=== PATIENT | male | born 1980 | race American Indian/Alaskan Native ===

== ENCOUNTER 2016-10-02 15:35 | Emergency (ER) | payer MEDICAID, OTHER ==
[2016-10-02 15:36] VITALS: BMI 24.7
[2016-10-02 16:01] VITALS: BP 119/71; PULSE 83; RESP 20; TEMP 98.5; O2SAT 96
--- NOTE | 2016-10-02 18:02 | C.PDOC ---
History Of Present Illness 36 y/o male presents to the ED requesting alcohol detox. Pt arrives stating he is prescreened, drinks "a lot of beer and liquor" and wants to get better for his family. No physical complaints at this time. Time Seen by Provider: 10/02/16 17:36 Chief Complaint (Nursing): Substance Abuse History Per: Patient History/Exam Limitations: no limitations Suicide/Self Injury Attempted (Context): None Modifying Factor(s): Alcohol Severity: Mild Involuntary Hold By: None Recent travel outside of the [place]: No Past Medical History Reviewed: Historical Data, Nursing Documentation, Vital Signs Vital Signs: Last Vital Signs Temp 98.5 F 10/02/16 15:59 Pulse 83 10/02/16 15:59 Resp 20 10/02/16 15:59 BP 119/71 10/02/16 15:59 Pulse Ox 96 10/02/16 18:02 - Medical History PMH: Anxiety - [facility] DETOXIFICATION SERVICES FOR SUBSTANCE ABUSE TREATMENT (03/17/16) GROUP PSYCHOTHERAPY (09/08/15) Family History: States: Unknown Family Hx - Social History Hx Tobacco Use: Yes Hx Alcohol Use: Yes Hx Substance Use: No - Immunization History Hx Tetanus Toxoid Vaccination: No Hx Influenza Vaccination: No Hx Pneumococcal Vaccination: No Review Of Systems Except As Marked, All Systems Reviewed And Found Negative. Constitutional: Negative for: Fever Cardiovascular: Negative for: Chest Pain Respiratory: Negative for: Shortness of Breath Gastrointestinal: Negative for: Vomiting Psych: Negative for: Suicidal ideation Physical Exam - Physical Exam Appears: Non-toxic, No Acute Distress Skin: Warm, Dry, No Rash Head: Atraumatic, Normacephalic Neck: Normal, Normal ROM, Supple Chest: Symmetrical Cardiovascular: Rhythm Regular, No Murmur Respiratory: Normal Breath Sounds, No Rales, No Rhonchi, No Wheezing Gastrointestinal/Abdominal: Normal Exam, Soft, No Tenderness Extremity: Bilateral: Atraumatic Neurological/Psych: Oriented x3, Normal Speech ED Course And Treatment O2 Sat by Pulse Oximetry: 96 (room air) Pulse Ox Interpretation: Normal Medical Decision Making Medical Decision Making: Spoke to CRISIS, patient not prescreened. Will order labs, medical clearance. Pending bed availability. No available beds. Patient informed to try the next day. Disposition Counseled Patient/Family Regarding: Diagnosis, Need For Followup - Disposition Referrals: [facility] [Outside] Disposition: HOME/ ROUTINE Disposition Time: 18:44 Condition: GUARDED Additional Instructions: Call the detox unit and request a bed. [phone] Forms: General Discharge Instructions - POA Present On Arrival: None - Clinical Impression Clinical Impression: Alcohol abuse - Scribe Statement The provider has reviewed the documentation as recorded by the Abhi Timmons Provider Attestation: All medical record entries made by the Abhi were at my direction and personally dictated by me. I have reviewed the chart and agree that the record accurately reflects my personal performance of the history, physical exam, medical decision making, and the department course for this patient. I have also personally directed, reviewed, and agree with the discharge instructions and disposition.
[2016-10-02 18:46] LABS: BASO # 0.1 K/uL (0.0-0.2); BASO % 1.4 % (0.0-2.0); EOS % 1.1 % (0.0-4.0); LYMPH % 49.8 % (20.0-40.0); MEAN CELL VOLUME 100.1 fL (80.0-94.0); MEAN CORPUSCULAR HEMOGLOBIN 33.1 pg (27.0-31.0); MONO # 0.5 K/uL (0.0-0.8); MONO % 12.8 % (0.0-10.0); NRBC % 0.1 % (0.0-2.0); RED CELL DISTRIBUTION WIDTH 14.8 % (11.5-14.5)
[2016-10-02 19:07] LABS: CHLORIDE 107 mmol/L (98-107)
[2016-10-02 19:08] LABS: POTASSIUM 3.7 mmol/L (3.6-5.2); SODIUM 145 mmol/L (132-148)
[2016-10-02 19:10] LABS: ALB/GLOB RATIO 1.3 (1.0-2.1); ALKALINE PHOSPHATASE 101 U/L (38-126); ALT/SGPT 88 U/L (21-72); AST/SGOT 154 U/L (17-59); BILIRUBIN,TOTAL 0.5 mg/dL (0.2-1.3); BLOOD UREA NITROGEN 3 mg/dL (9-20); CARBON DIOXIDE 26 mmol/L (22-30); GFR AFRICAN-AMERICAN > 60; GLUCOSE,RANDOM 118 mg/dL (75-110); TOTAL PROTEIN 7.3 g/dL (6.3-8.3)
[2016-10-02 19:11] LABS: CALCIUM 8.6 mg/dl (8.6-10.4)
[2016-10-02 19:40] LABS: ALCOHOL SERUM 406 mg/dl (0-10)
== END 2016-10-02 18:49 | disposition home or self-care (01) ==
LOC: C.ER 15:35
DX: F10.10 Alcohol abuse, uncomplicated (principal); Y90.8 Blood alcohol level of 240 mg/100 ml or more

== ENCOUNTER 2016-10-10 18:18 | Emergency (ER) | payer MEDICAID, OTHER ==
[2016-10-10 18:19] VITALS: BMI 23.6
[2016-10-10 18:22] VITALS: BP 149/102; PULSE 86; RESP 18; TEMP 97.9; O2SAT 97
--- NOTE | 2016-10-10 19:19 | C.PDOC ---
History Of Present Illness Patient is a 36 year old male who was brought to the ER after his brother called EMS so he may get detox from ETOH. Patient is currently intoxicated and admits to drinking today; he is able to speak but as slurred speech and his able to talk steady. Last time patient was here he left AMA; denies any physical complaints at this time. Time Seen by Provider: 10/10/16 19:07 Chief Complaint (Nursing): Substance Abuse History Per: Patient History/Exam Limitations: no limitations Onset/Duration Of Symptoms: Hrs Current Symptoms Are (Timing): Still Present Suicide/Self Injury Attempted (Context): None Modifying Factor(s): Alcohol Associated Symptoms: denies: Depression, Suicidal Thoughts, Suicidal Plan Recent travel outside of the [place]: No Past Medical History Reviewed: Historical Data, Nursing Documentation, Vital Signs Vital Signs: Last Vital Signs Temp 97.9 F 10/10/16 18:21 Pulse 86 10/10/16 18:21 Resp 18 10/10/16 18:21 BP 149/102 H 10/10/16 18:21 Pulse Ox 97 10/10/16 19:30 - Medical History PMH: Anxiety Surgical History: No Surg Hx - [facility] Procedures DETOXIFICATION SERVICES FOR SUBSTANCE ABUSE TREATMENT (03/17/16) GROUP PSYCHOTHERAPY (09/08/15) Family History: States: Unknown Family Hx - Social History Hx Tobacco Use: Yes Hx Alcohol Use: Yes Hx Substance Use: No - Immunization History Hx Tetanus Toxoid Vaccination: No Hx Influenza Vaccination: No Hx Pneumococcal Vaccination: No Review Of Systems Constitutional: Negative for: Fever, Chills Gastrointestinal: Negative for: Nausea, Vomiting, Diarrhea Physical Exam - Physical Exam Appears: Non-toxic, No Acute Distress, Other (ETOH on breath) Skin: Normal Color, Warm, Dry Head: Swelling (Left cheek), Abrasion (Left cheek) Oral Mucosa: Moist Chest: Symmetrical, No Tenderness Cardiovascular: Rhythm Regular, No Murmur Respiratory: Normal Breath Sounds, No Rales, No Rhonchi, No Wheezing Gastrointestinal/Abdominal: Soft, No Tenderness Neurological/Psych: Oriented x3, Normal Speech, Normal Cognition ED Course And Treatment O2 Sat by Pulse Oximetry: 97 (Room air) Pulse Ox Interpretation: Normal Progress Note: Case discussed with Crisis, who states there are no detox beds available. Patient given lists of available detox facilities in the area. Disposition - Disposition Disposition: HOME/ ROUTINE Disposition Time: 19:37 Condition: STABLE - Clinical Impression Clinical Impression: Alcohol abuse, Alcohol intoxication - Scribe Statement The provider has reviewed the documentation as recorded by the Scribfranchesca Platt All medical record entries made by the Valerieibe were at my direction and personally dictated by me. I have reviewed the chart and agree that the record accurately reflects my personal performance of the history, physical exam, medical decision making, and the department course for this patient. I have also personally directed, reviewed, and agree with the discharge instructions and disposition.
== END 2016-10-10 19:26 | disposition home or self-care (01) ==
LOC: C.ER 18:18
DX: F10.129 Alcohol abuse with intoxication, unspecified (principal); Y90.9 Presence of alcohol in blood, level not specified

== ENCOUNTER 2017-06-21 14:34 | Inpatient (IN) | payer MEDICAID, OTHER ==
[2017-06-21 14:35] VITALS: BMI 23.6
[2017-06-21 15:48] LABS: BASO # 0.1 K/uL (0.0-0.2); BASO % 0.9 % (0.0-2.0); EOS # 0.1 K/uL (0.0-0.7); EOS % 0.9 % (0.0-4.0); HEMOGLOBIN 13.9 g/dL (12.0-18.0); LYMPH # 2.1 K/uL (1.0-4.3); LYMPH % 30.9 % (20.0-40.0); MEAN CELL VOLUME 99.5 fL (80.0-94.0); MEAN CORPUSCULAR HEMOGLOBIN 34.1 pg (27.0-31.0); MEAN CORPUSCULAR HGB CONC 34.3 g/dL (33.0-37.0); MEAN PLATELET VOLUME 8.2 fL (7.2-11.7); MONO # 0.9 K/uL (0.0-0.8); MONO % 13.1 % (0.0-10.0); NEUT # 3.7 K/uL (1.8-7.0); NEUT % 54.2 % (50.0-75.0); NRBC % 0.1 % (0.0-2.0); RBC 4.07 Mil/uL (4.40-5.90); RED CELL DISTRIBUTION WIDTH 14.7 % (11.5-14.5); WHITE BLOOD COUNT 6.9 K/uL (4.8-10.8)
[2017-06-21 15:49] LABS: URINE BILIRUBIN NEGATIVE (NEGATIVE); URINE BLOOD NEGATIVE (NEGATIVE); URINE CLARITY Clear (Clear); URINE COLOR Colorless (YELLOW); URINE GLUCOSE (UA) NORMAL (Normal); URINE LEUKOCYTE ESTERASE NEG Leu/uL (Negative); URINE PROTEIN NEGATIVE (NEGATIVE); URINE UROBILINOGEN NORMAL mg/dL (0.2-1.0)
[2017-06-21 15:59] LABS: ALB/GLOB RATIO 1.2 (1.0-2.1); ALBUMIN 4.6 g/dL (3.5-5.0); ALT/SGPT 157 U/L (21-72); AST/SGOT 261 U/L (17-59); BLOOD UREA NITROGEN 3 mg/dL (9-20); CALCIUM 9.2 mg/dl (8.6-10.4); GFR AFRICAN-AMERICAN > 60; GFR NON-AFRICAN AMERICAN > 60
[2017-06-21 16:04] LABS: BARBITURATES, UR NEGATIVE (NEGATIVE); BENZODIAZEPINES, UR NEGATIVE (NEGATIVE); OPIATES, UR NEGATIVE (NEGATIVE); PHENCYCLIDINE, UR NEGATIVE (NEGATIVE)
--- NOTE | 2017-06-21 16:12 | C.PDOC ---
History Of Present Illness 36 yr old male presents to the ER for alcohol detox. Patient is a pre-screen. Reports last drink was [employer]. Denies SI, HI, hallucinations, chest pain, SOB, numbness or weakness. Time Seen by Provider: 06/21/17 15:09 Chief Complaint (Nursing): Medical Clearance History Per: Patient History/Exam Limitations: no limitations Onset/Duration Of Symptoms: Days Past Medical History Reviewed: Historical Data, Nursing Documentation, Vital Signs Vital Signs: Last Vital Signs Temp 97.8 F 06/21/17 15:04 Pulse 93 H 06/21/17 15:04 Resp 20 06/21/17 15:04 BP 147/87 06/21/17 15:04 Pulse Ox 97 06/21/17 18:22 - Medical History PMH: Anxiety - [facility] Procedures DETOXIFICATION SERVICES FOR SUBSTANCE ABUSE TREATMENT (03/17/16) GROUP PSYCHOTHERAPY (09/08/15) Family History: States: No Known Family Hx - Social History Hx Tobacco Use: Yes Hx Alcohol Use: Yes Hx Substance Use: No - Immunization History Hx Tetanus Toxoid Vaccination: No Hx Influenza Vaccination: No Hx Pneumococcal Vaccination: No Review Of Systems Except As Marked, All Systems Reviewed And Found Negative. Cardiovascular: Negative for: Chest Pain Respiratory: Negative for: Shortness of Breath Neurological: Negative for: Weakness, Numbness Psych: Negative for: Suicidal ideation Physical Exam - Physical Exam Appears: Non-toxic, No Acute Distress Skin: Warm, Dry Oral Mucosa: Moist Neck: Normal Cardiovascular: No Murmur Respiratory: Normal Breath Sounds, No Rales, No Rhonchi, No Stridor, No Wheezing Gastrointestinal/Abdominal: Normal Exam, Bowel Sounds Back: Normal Inspection Extremity: No Swelling Neurological/Psych: Oriented x3, Normal Speech ED Course And Treatment - Laboratory Results Result Diagrams: 06/21/17 15:40 06/21/17 15:40 O2 Sat by Pulse Oximetry: 97 (RA) Pulse Ox Interpretation: Normal Medical Decision Making Medical Decision Making: IMPRESSION: Alcohol abuse PLAN: * Alcohol Serum * Drug Screen * Labs * Urinalysis NOTE: patient alcohol level elevated. Case s/o to Dr. Crawford pending sobriety and crisis evaluation. Disposition Discussed With : Tessy Crawford Counseled Patient/Family Regarding: Studies Performed - Disposition Disposition Time: 19:00 Condition: STABLE Forms: [facility] (Malay) - Clinical Impression Clinical Impression: Alcohol use disorder - Scribe Statement The provider has reviewed the documentation as recorded by the Scribe Anupama Perez Provider Attestation: All medical record entries made by the Scribe were at my direction and personally dictated by me. I have reviewed the chart and agree that the record accurately reflects my personal performance of the history, physical exam, medical decision making, and the department course for this patient. I have also personally directed, reviewed, and agree with the discharge instructions and disposition. Physician Patient Turnover Patient Signed Over To: Tessy Crawford Handoff Comments: pending sobriety and crisis evaluation
--- NOTE | 2017-06-21 20:51 | PCM.BM ---
<Miranda Gomez - Last Filed: 06/21/17 20:50> Treatment Plan Problems - Problems identified on initial assessmt potiential for autonomic instability related to alcohol withdrawal Date Initiated: 06/21/17 Time Initiated: 20:50 Assessment reference: NA Status: Active Treatment assets and liabiliti Patient Assests: ADL independent Patient Liabilities: substance abuse, medical problems - Milieu Protocol Maintain good personal hygiene: daily Encourage regular showers, daily Remind patient to perform daily oral care, daily Assist patient to perform ADL's Maintain personal safety: every shift Educate patient to report safety concerns to staff, every shift Monitor environment for contraband/sharps Medication safety: Monitor for expected outcome, potential side effects: every shift, Assess barriers to learning: every shift, Assess readiness for medication education: every shift <Beti Botello - Last Filed: 06/24/17 16:20> Family Contact Family involvement: Patient does not wish Family/SO involvement - Goals for Treatment Patient goals for treatment: Complete detox and transition to IOP at [facility]. Discharge/Continuing Care - Education Needs Education Needs: Patient Medication, Patient Diagnosis/Disease Process, Patient Coping Skills, Patient Anger Management skills, Patient Placement options, Patient Community resources - Discharge Discharge Criteria: No longer exhibiting s/s of withdrawal, Reduction of target symptoms Discharge to:: Home, With Family - Treatment Team Participation Patient/Family/SO Statement: 06/24/17 16:21 "I wanna go back to work so I'm only looking for outpatient..." Discussed with Family/SO: No Was Patient/Family/SO present at Treatment Team Meeting: Yes <Eulogio James - Last Filed: 06/26/17 12:17> - Diagnosis (1) Alcohol use disorder Status: Acute Interventions: 06/26/17 12:17 * Assess 7x/week regarding severity of withdrawal * Educate regarding risks, benefits, side effects and alternatives of medications * Use Motivational Interviewing for abstinence * Use CBT for relapse prevention * Medication management for withdrawal symptoms * Encourage medication assisted treatment *
[2017-06-22] MEDS: Multiple Vitamins Tab PO SCH (09:43)
[2017-06-22] MEDS: guaiFENesin 100 mg/5 ml Syrup UD PO PRN ×2 (14:13→20:44)
--- NOTE | 2017-06-22 14:36 | RAD ---
HISTORY: c/o cough with pain COMPARISON: Chest x-ray performed 09/10/15 TECHNIQUE: Chest PA and lateral FINDINGS: LUNGS: No focal consolidation. Please note that chest x-ray has limited sensitivity for the detection of pulmonary masses. PLEURA: No significant pleural effusion identified. No definite pneumothorax . CARDIOVASCULAR: The cardiomediastinal silhouette appears within normal limits of size. OSSEOUS STRUCTURES: No acute osseous abnormality identified. VISUALIZED UPPER ABDOMEN: Unremarkable. OTHER FINDINGS: None. IMPRESSION: No focal consolidation identified.
[2017-06-23] MEDS: guaiFENesin 100 mg/5 ml Syrup UD PO PRN ×3 (09:20→22:32)
[2017-06-23] MEDS: Multiple Vitamins Tab PO SCH (09:21)
[2017-06-23] MEDS: Benzocaine/Menthol (Cepacol) Lozenge MT PRN ×2 (13:52→22:31)
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
--- NOTE | 2017-06-23 22:46 | PCM.PYCHPN ---
Psychiatric Progress Note - Psychiatric Progress Note Patient seen today, length of contact: 20 MINS Patient Chief Complaint: MY EARS ARE STILL RINGING THE RINGIN G ONLY STOPPED WHEN I DRANK Problems Identified/Issues Discussed: TINNITUS REASONS FOR IT MANAGEMENT OF ALCOHOL CRAVINGS USE OF NALTREXONE PROS AND CONS BECAUSE OF INCREASED LFTS POST ACUTE WITHDRAWAL SYNDROME Medical Problems: NOTHING ACUTE Diagnostic Results: REVIEWED DSM 5 Symptoms Update: TREMORS RESTLESSNESS TINNITUS Medication Change: Yes (ATIVAN TAPER) Medical Record Reviewed: Yes Mental Status Examination - Cognitive Function Orientation: Person, Place, Situation Memory: Intact Attention: WNL Concentration: WNL Association: WNL Fund of Knowledge: WNL - Mood Mood: Anxious, Other Additional comments: IRRITABLE - Affect Affect: Constricted - Speech Speech: Appropriate - Formal Thought Process Formal Thought Process: No Impairment - Suicidal Ideation Suicidal Ideation: No - Homicidal Ideation Homicidal Ideation: No Goal/Treatment Plan - Goal/Treatment Plan Need for Continued Stay: Discharge may exacerbated symptoms Progress Toward Problem(s) and Goals/Treatment Plan: ALCOHOL WITHDRAWAL ATIVAN TAPER ALCOHOL USE DISORDER [facility] [place] [facility]U RECREATIONAL THERAPY INDIVIDUAL SUPPORTIVE PSYCHOTHERAPY Estimated Date of D/C: 06/28/17 - Smoking Cessation Smoking Cessation Initiated: No
[2017-06-24] MEDS: Multiple Vitamins Tab PO SCH (09:10)
--- NOTE | 2017-06-24 15:06 | PCM.PYCHPN ---
Psychiatric Progress Note - Psychiatric Progress Note Patient seen today, length of contact: 17 MINS Patient Chief Complaint: "I'm anxious" Problems Identified/Issues Discussed: The pt is seen, chart reviewed, case discussed with staff. Patient admits to feeling anxious secondary to EtOH withdrawal Support given, CBT and LA used briefly No other symptoms reported, improving slowly and needs more time No SEs from medications, risks discussed. After care discussed Medication Change: Yes (ATIVAN TAPER) Medical Record Reviewed: Yes Mental Status Examination - Cognitive Function Orientation: Person, Place, Situation, Time Memory: Intact Attention: WNL Concentration: WNL Association: WNL Fund of Knowledge: WNL - Mood Mood: Anxious, Other - Affect Affect: Constricted - Speech Speech: Appropriate - Formal Thought Process Formal Thought Process: No Impairment - Suicidal Ideation Suicidal Ideation: No - Homicidal Ideation Homicidal Ideation: No Goal/Treatment Plan - Goal/Treatment Plan Need for Continued Stay: Remain at risks for inpatient hospitalization, Discharge may exacerbated symptoms, Severe functional impairment Progress Toward Problem(s) and Goals/Treatment Plan: Continue medications Support and psychoeducation daily Attend groups and activities daily After care planning by KIERSTEN Estimated Date of D/C: 06/28/17 - Smoking Cessation Smoking Cessation Initiated: No Reason for not providing: Declines
[2017-06-25 06:48] VITALS: O2SAT 99
--- NOTE | 2017-06-25 08:51 | PCM.PYCHDC ---
Mental Status Examination - Mental Status Examination Orientation: Person, Place, Situation, Time Memory: Intact Mood: Anxious Affect: Constricted Speech: Appropriate Attention: WNL Concentration: WNL Association: WNL Fund of Knowledge: WNL Formal Thought Process: No Impairment Suicidal Ideation: No Current Homicidal Ideation?: No Discharge Summary - Discharge Note Reason for Hospitalization: Alcohol detox Consultations:: List each consultation separately and include: 1. Reason for request. 2. Findings. 3. Follow-up Summary of Hospital Course include:: 1. Description of specific treatment plan utilized for patients during their course of treatmen. 2. Summarize the time- course for resolution of acute symptoms and/or regressed behaviors. 3. Describe issues identified and worked on during hospitalization. 4. Describe medication utilized. 5. Describe medical problems identified and treated. 6. Reassessment of suicide risk Summary of Hospital Course: The pt was admitted and started on treatment with psychotherapy, support, psychoeducation and medications. MS and CBT used. The pt attended groups and activities, as well as milieu therapy. All the risks and benefits of medications are discussed and the patient understood and agreed. The pt improved with the treatments provided. After care discussed with the patient. - He went to [facility] - Final Diagnosis (DSM 5) Condition upon Discharge: IMPROVED DSM 5: Alcohol withdrawal Alcohol use d/o- severe Disposition: HOME/ ROUTINE Follow-up Treatment Plan: Continue below medications after discharge. Follow after care plan as discussed. Use relapse prevention skills Return to ER or call 911 if suicidal, homicidal or symptoms relapse. Stay away from stress, alcohol and drugs. See primary doctor regularly and get labs. Prescriptions/Medication Reconciliation: Gabapentin [Neurontin] 300 mg PO TID #90 cap traZODone [Desyrel] 50 mg PO HS PRN #30 tab PRN Reason: Insomnia - Smoking Cessation Smoking Cessation Medication prescribed: No - Antipsychotic Medications Pt discharged on 2 or more routine antipsychotic medications: No
[2017-06-25] MEDS: Multiple Vitamins Tab PO SCH (09:17)
[2017-06-25 09:44] VITALS: BP 144/83; PULSE 91; RESP 20; TEMP 98.6
== END 2017-06-25 09:20 | disposition home or self-care (01) | DRG 895 ==
LOC: C.ER 14:34 → C.7D 20:24
PROVIDERS: ADMIT Psychiatry & Neurology Psychiatry; ATTEND Psychiatry & Neurology Psychiatry
PROC: HZ2ZZZZ Detoxification Services for Substance Abuse Treatment (ICD-10-PCS; principal; 2017-06-21)
PROC: HZ56ZZZ Individual Psychotherapy for Substance Abuse Treatment, Psychoeducation (ICD-10-PCS; 2017-06-21)
PROC: HZ59ZZZ Individual Psychotherapy for Substance Abuse Treatment, Supportive (ICD-10-PCS; 2017-06-21)
DX: F10.230 Alcohol dependence with withdrawal, uncomplicated (principal); F17.210 Nicotine dependence, cigarettes, uncomplicated; H93.19 Tinnitus, unspecified ear; Y90.8 Blood alcohol level of 240 mg/100 ml or more; I10 Essential (primary) hypertension

== ENCOUNTER 2017-11-05 19:55 | Emergency (ER) | payer MEDICAID, OTHER ==
[2017-11-05 19:56] VITALS: BMI 23.6
[2017-11-05 20:51] VITALS: BP 140/96; PULSE 115; RESP 20; TEMP 98.6; O2SAT 99
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
== END 2017-11-05 21:55 | disposition home or self-care (01) ==
LOC: C.ER 19:55
DX: F10.10 Alcohol abuse, uncomplicated (principal); Y90.9 Presence of alcohol in blood, level not specified